=== PATIENT | male | born 1965 | race Caucasian/White ===

== ENCOUNTER 2016-06-13 06:55 | Day surgery (SDC) | payer OTHER ==
[~2016-06-13] VITALS: Ht 180.3 cm; Wt 92.7 kg
[2016-06-13] VITALS (10 sets, daily range): BP systolic 118–136; BP diastolic 59–93; PULSE 58–74; RESP 13–17; O2SAT 93–98
[~2016-06-13 06:55] MED LIST: CLIN-78 PO; CeFAZolin Inj 2 GM in IV Premix 1 EACH IV ONE; HYDR-4003 PO; LISI-567 PO; Lactated Ringer's 1,000 ML IV ONE
[2016-06-13] MEDS ORDERED: fentaNYL-PF 50 mCg/mL 2 mL Inj ONE (06:56)
[2016-06-13] MEDS ORDERED: MetoCLOpramide 5 mg/mL 2 mL Inj ONE (06:56)
[2016-06-13] MEDS ORDERED: Dexamethasone 4 mg/mL Inj ONE (06:56)
[2016-06-13] MEDS ORDERED: Ondansetron 2 mg/mL 2 mL Inj ONE (06:56)
[2016-06-13] MEDS ORDERED: Propofol 10,000 mCg/mL 20 mL Inj ONE (06:56)
[2016-06-13] MEDS ORDERED: CeFAZolin Inj 2 gm / 50mL D5W IV ONE (07:31)
[2016-06-13] MEDS ORDERED: Bupivacaine-MPF 0.25% 30 mL Inj INFILTRATE ONE (09:06)
[2016-06-13] MEDS ORDERED: Ondansetron 2 mg/mL 2 mL Inj IVPUSH PRN (09:20)
[2016-06-13] MEDS ORDERED: hydrALAZINE 20 mg/mL Inj IVPUSH PRN (09:20)
[2016-06-13] MEDS ORDERED: Atropine 0.4 mg/mL Inj IVPUSH PRN (09:20)
[2016-06-13] MEDS ORDERED: MetoCLOpramide 5 mg/mL 2 mL Inj IVPUSH PRN (09:20)
[2016-06-13] MEDS ORDERED: Phenylephrine 10,000 mCg/mL Inj IVPUSH PRN (09:20)
[2016-06-13] MEDS ORDERED: Lactated Ringer's 500 ML IV PRN (09:20)
[2016-06-13] MEDS ORDERED: Labetalol 5 mg/mL 4 mL Inj IV PRN (09:20)
[2016-06-13] MEDS ORDERED: EPHEDrine Sulfate 50 mg/mL Inj IVPUSH PRN (09:20)
[2016-06-13] MEDS ORDERED: HYDROmorphone 1 mg/mL Inj IVPUSH PRN (09:20)
[2016-06-13] MEDS ORDERED: Lactated Ringer's 1,000 ML IV SCH (09:20)
--- NOTE | 2016-06-13 09:20 | PCM.HPANE ---
Patient Data Date of Service: Jun 13, 2016 (0840) Surgeon Admitting Provider: Attending Provider:Bob Esteban MD Primary Care Physician:Evelyn Other Provider: Reason for Visit Right Small Finger Laceration With Tendon Injury Ht/WT & BMI Height (Feet): 5 Height (Inches): 11 Weight (Kilograms): 92.7 Body Mass Index 28.00 Allergies Coded Allergies: naproxen (Verified Allergy, Severe, 07/08/15) Past Anesthesia History Anesthesia History: Denies:: Anesthesia Reactions Diabetes History Hx Diabetes?: No MRSA MRSA: No Medications Hypertension Medication: Yes Home Meds Incl Beta Carla: No Reported Medications Hydrocodone-Acetaminophen 5-325 mg 1 Each Tablet1 Tablet PO Q6H PRN For Pain Ref 0 06/09/16 Lisinopril 20 Mg [id number] Mg PO DAILY 30 Days Ref 0 06/09/16 Clindamycin 300 Mg [id number] Mg PO Q8H Ref 0 for 7 day course 06/09/16 Discontinued Reported Medications Hydrocod/APAP-Expunged, Do Not Renew! 1 Each Tablet1 Tab PO Q4 PRN 05/06/11 Doxycycline Hyclate (Doxycycline)100 Mg [id number] Mg PO DAILY 05/06/11 Zolpidem-Expunged Drug, Do Not Renew! 5 Mg Tab5 Mg PO HS 05/06/11 History History of ENT Problems?: No Hx of Heart Problems?: Yes Cardiovascular History: Positive for:: Hypertension Thrombophlebitis (hx of DVT 2004- then PE) Denies:: Congestive Heart Failure Hx of Respiratory Problem?: Yes Respiratory History: Positive for:: Pulmonary Embolism (2004- following DVT) Denies:: Asthma COPD Oxygen Administration Tuberculosis Use of C-PAP Machine Hx Neurologic Problems?: No Neurological History: Denies:: CVA Headaches Multiple Sclerosis Parkinson's Disease Seizures Hx of GI Problems?: Yes Gastrointestinal History: Positive for:: Diverticulitis (hx of colon resection 2007 for divertic) Denies:: Gastroesphageal Reflux Hx of Problems?: No Male Hx: Denies:: Prostate Problems Testicular Surgery Skin History: Denies:: History Skin Disorders? Pressure Ulcers Hx Musculoskeletal Problems?: Yes Musculoskeletal History: Positive for:: Musculoskeletal Trauma (right small finger injury current admission problem) Hx of Psycho/Social Problems?: Yes Psycho Social History: Positive for:: Anxiety (not on medications) Hx Surgeries?: Yes (tonsil, expl lap with colon resection) Hx Any Other Health Problems?: Yes Other History: Positive for:: Hospitalization (abdominal surgery ) Denies:: Cancer Endocrine Disease Thyroid Disease History Blood Transfusions: Denies:: Blood Transfuse Reaction Blood Transfusions Hx Diabetes: No Hx Alcohol Use: YesAlcoholic Drinks Per Day: occasionalHx Substance Use: No Smoking Status: Never Smoker Have You Smoked inLast 12 mo: No Stop/Bang S-Snoring: Do You Snore Loudly: No T-Tired: feel tired, fatigued: No O-Obsered: Observed not breath: No P-Blood Pressure: treated: Yes B- Body Mass Index > 35 kg/m2: No A- Age over 50: No N- Neck Large Circumference: No G- Gender Male: Yes HUGO Total Score: 2 Risk Assessment Category Category 1A: Patient has history of documented sleep apnea, and HAS NOT received any narcotic, sedative or anesthesia administration during this stay. Category 1B: Patient has history of documented sleep apnea, and HAS received any narcotic , sedative or anesthesia administration during this stay Category 2: Patient has SUSPECTED Obstructive Sleep Apnea, and HAS received any narcotic , sedative or anesthesia administration during this stay. Category 3: Patient has SUSPECTED Obstructive Sleep Apnea and HAS NOT received narcotic, sedative or anesthesia administration during this stay. Category 4: Outpatient in Procedural Areas with known sleep apnea or who screen positive for High Risk via the STOP/BANG questionnaire. Exam Exam Vital Signs Vital Signs Date Time Temp Pulse Resp B/P Pulse Ox O2 Delivery O2 Flow Rate FiO2 06/13/16 07:46 35.5 59 17 131/93 96 Room Air General Appearance: Alert, Oriented X3, Cooperative, No Acute Distress HEENT/AIRWAY: MP 2, Neck Movement (FROM), Mouth Opening (3 FBMO) Lungs: Normal Air Movement Heart: Regular Rate/Rhythm Meds/Labs/Diagnostics Admission Meds Current Medications Cefazolin Sodium/ Dextrose 2 gm/ Premix 50 ml @ 100 mls/hr 01 ONCE IV Last administered on 06/13/16 08:48; Start 06/13/16 at 01:00; Stop 06/13/16 at 01:29 ; Status DC Lactated Ringer's (Lr) 1,000 ml @ 120 mls/hr Q8H20M ONCE IV Last administered on 06/13/16 07:29; Start 06/12/16 at 14:04; Stop 06/12/16 at 22:23; Status DC Bupivacaine HCl (Sensorcaine-MPF 0.25% Inj) 30 ml STK-MED ONCE INFILTRATE Last administered on 06/13/16 09:06; Start 06/13/16 at 09:06; Stop 06/13/16 at 09:15 ; Status DC Plan Impression Patient chart reviewed, patient interviewed and anesthestic plan with risks, benefits, and alternatives discussed, and informed consent obtained. NPO Status: 212906/12/16 ASA Physical Status: ASA2 Mod Systemic Disease Anesthetic Plan: GA Bene/Risks/Altern/Consents: Yes HP Complete Prior to Induction: Yes Carmelo Roman MD Jun 13, 2016 09:20
[2016-06-13] MEDS ORDERED: Bacitracin Ointment Packet TOPICAL ONE (10:05)
[2016-06-13] MEDS ORDERED: oxyCODONE-Acetamin 5-325 mg Tablet PO PRN (10:20)
[2016-06-13] MEDS: fentaNYL-PF 50 mCg/mL 2 mL Inj IVPUSH PRN ×2 (10:35→10:40)
--- NOTE | 2016-06-13 10:57 | PCM.ANEP2 ---
Post Anesthesia Evaluation ASA/CMS Post Anesthesia VS in Patient's Normal Range?: Yes Resp Stable; Airway Patent?: Yes CV Function & Hydration Stable: Yes Mental Status Recovered?: Yes Pain control Satisfactory?: Yes N/V Control Satisfactory?: Yes Carmelo Roman MD Jun 13, 2016 10:57
--- NOTE | 2016-06-13 10:57 | PCM.ANEP1 ---
Post Anesthesia Phase 1 PACU Phase 1 Assessment Date of Service: Jun 13, 2016 (0840) Vital Signs Vital Signs Date Time Temp Pulse Resp B/P Pulse Ox O2 Delivery O2 Flow Rate FiO2 06/13/16 10:45 61 13 119/67 93 Nasal Cannula 2 06/13/16 10:30 60 16 127/84 94 Nasal Cannula 2 06/13/16 10:25 60 14 118/59 96 Simple Mask 10 06/13/16 10:20 58 15 122/72 97 Simple Mask 10 06/13/16 10:15 37.0 61 15 132/74 95 Simple Mask 10 06/13/16 07:46 35.5 59 17 131/93 96 Room Air Anesthetic Administered: GA Level of Alertness: Awake, talking CASON's with Equal Strength: Yes Pain: No Nausea or Vomiting: No Oxygen Delivery: Nasal Cannula Lungs: Normal Air Movement Dermatome Level: Full Sensation Carmelo Roman MD Jun 13, 2016 10:57
--- NOTE | 2016-06-16 19:09 | OP ---
[address] [address] OPERATIVE REPORT PATIENT: CHUCK LOWRY : 1965 MR#: [id number] ADMIT: 06/13/2016 JOB ID: [id number] DATE OF SURGERY: 06/13/2016 PREOPERATIVE DIAGNOSIS(ES): Right small finger laceration with tendon involvement. POSTOPERATIVE DIAGNOSIS(ES): Right small finger laceration with zone two flexor digitorum profundus laceration. PROCEDURE: 1. Exploration of right small finger penetrating trauma with extension of the previous laceration into a Tien type incision from the middle of the middle phalanx down to the distal palm and subsequent closure. 2. Right small finger zone two flexor digitorum profundus repair. SURGEON: Bob Esteban MD TIP SCOURER: None. ANESTHESIA: General anesthesia. COMPLICATIONS: None apparent. ESTIMATED BLOOD LOSS: Minimal. SPECIMEN: None. IMPLANTS: None. INDICATIONS FOR PROCEDURE: This is a 51-year-old male patient who sustained a laceration to the small finger approximately one week ago. Patient had inability to flex the small finger consistent with tendon injury. At this point exploration of right small finger and repair of the lacerated structures are indicated. PROCEDURE AND FINDINGS: The patient was identified in the preoperative area. The surgical site was marked. The patient was then taken back to the operating room and placed supine on the operating table. Appropriate time-outs were taken. General anesthesia was induced smoothly. The patient was then prepped and draped in the usual sterile manner. It was noted that the patient has a small transverse laceration near the base of the proximal phalanx on the volar aspect. A Tien incision was then designed incorporating part of the laceration. The initial incision was from the proximal interphalangeal crease into the distal palmar crease. Local anesthesia was then infiltrated to the surgical site consisting of 0.25% Marcaine. The right upper extremity was then exsanguinated and the tourniquet inflated to 250 mmHg. Incision was then made with a #15 blade down through the skin. I then performed blunt dissection with a pair of tenotomy scissors to elevate the skin flap off of the underlying flexor apparatus. Care was taken to avoid the neurovascular bundle which was identified and retracted. It was noted that patient had a laceration of the FDP tendon. The flexor digitorum superficialis tendon was intact. The site of the laceration and tendon sheath violation was in the mid proximal phalanx. The distal stump had retracted distal to the distal end of the incision. Proximally the proximal stump was at the level between the digital palmar crease and the distal palmar crease. At this point, I extended the incision to the middle of the middle phalanx. Incision was made with a #15 blade. Incision was then deepened down into the skin. The skin flap was then elevated. The skin flaps were then sutured out of the way. The distal end of the lacerated tendon was then identified. I incised through the A1 nay to allow for retrieval of the proximal stump. It was then passed under the A2 nay to the area of the proximal interphalangeal joint. It was then secured in place to allow retraction using a 22-gauge needle. I then flexed the DIP joint which allowed the distal stump to also be at the area in the level of the proximal interphalangeal joint. A small window was then made over the PIP joint in the flexor sheath to allow for both thumbs to be accessed. At this point, a 5-0 Prolene suture was then placed on the dorsal aspect of the tendons in a simple running manner. Once this has been done, a 6-strand modified Guzmán weave was then accomplished using 4-0 looped Supramid suture. Of note, I made a small window just distal to the A4 nay and just proximal to the A2 nay, where I was able to place the Guzmán weave through those openings and through the opening at the proximal interphalangeal joint. Once the Guzmán weave had been placed and secured, the 5-0 Prolene suture was then used to place a running cross weave on the anterior surface of the tendon repair. Once this had been done, the finger was ranged and the tendon repair appeared to be quite secure. The tourniquet was released and hemostasis was obtained with electrocautery. The incision was then reapproximated using several 4-0 nylon horizontal mattress sutures. The patient tolerated the procedure well. Needle count, sponge count, and instrument counts were correct at the end of the procedure. The patient was then placed into a well-padded dorsal blocking splint with the wrist, MP joint, and PIP joint held in slight flexion. The patient was extubated and transported to recovery in stable condition.
== END 2016-06-13 23:59 | disposition home or self-care (01) ==
LOC: SAS 06:55
PROVIDERS: ATTEND Plastic Surgery
DX: S61.216A Laceration without foreign body of right little finger without damage to nail, initial encounter (principal); S66.126A Laceration of flexor muscle, fascia and tendon of right little finger at wrist and hand level, initial encounter; I10 Essential (primary) hypertension; F41.9 Anxiety disorder, unspecified; W22.8XXA Striking against or struck by other objects, initial encounter; Y93.9 Activity, unspecified; Y92.9 Unspecified place or not applicable; Y99.9 Unspecified external cause status; Z86.718 Personal history of other venous thrombosis and embolism; Z86.711 Personal history of pulmonary embolism
CPT/HCPCS: 26356; J0690; J1100; J1170; J2405; J2765; J3010; J7120